=== PATIENT | female | born 1975 | race Caucasian/White ===

== ENCOUNTER 2022-08-06 19:09 | Inpatient (IN) | payer OTHER ==
[~2022-08-06] VITALS: Ht 165.1 cm; Wt 136.1 kg
[2022-08-06] MEDS ORDERED: AMLODIPINE-OLM1 EAC2 (19:33)
[2022-08-06] MEDS ORDERED: GLUMETZA500 MG (19:33)
[2022-08-06] MEDS ORDERED: FERROUS SU15 MG/1 ML PO (19:33)
[2022-08-08] MEDS ORDERED: AMLODIPINE BESY10 MG (08:38)
[2022-08-08] MEDS ORDERED: VICTOZA 3-0.6 MG/0.1 (08:46)
[2022-08-08] MEDS ORDERED: LEVOTHYROXINE150 MCG (08:46)
[2022-08-08] MEDS ORDERED: FERROUS SULFAT325 MG (08:47)
== END 2022-08-08 13:02 | disposition home or self-care (01) | DRG 638 ==
LOC: ER 19:09 → MEDJ 22:09
PROVIDERS: ADMIT Specialist; ATTEND Specialist
PROC: B44HZZZ Ultrasonography of Bilateral Lower Extremity Arteries (ICD-10-PCS; principal; 2022-08-06)
PROC: B54DZZZ Ultrasonography of Bilateral Lower Extremity Veins (ICD-10-PCS; 2022-08-06)
DX: E11.628 Type 2 diabetes mellitus with other skin complications (principal); L03.115 Cellulitis of right lower limb; Z68.42 Body mass index [BMI] 45.0-49.9, adult; E11.51 Type 2 diabetes mellitus with diabetic peripheral angiopathy without gangrene; R60.0 Localized edema; E66.01 Morbid (severe) obesity due to excess calories; I10 Essential (primary) hypertension; E03.9 Hypothyroidism, unspecified; Z79.84 Long term (current) use of oral hypoglycemic drugs; Z20.822 Contact with and (suspected) exposure to COVID-19